=== PATIENT | female | born 1985 | race Caucasian/White ===

== ENCOUNTER → 2018-02-17 15:14 | Outpatient (CLI) | payer OTHER, SELFPAY ==
[2018-02-17 17:11] LABS: Absolute Lymphocyte Count 1.86 X10^3/ul (0.83-4.51); Basophil# 0.02 X10^3/uL; Basophil% 0.4 % (0-1); Eosinophil# 0.02 X10^3/uL; Eosinophils% 0.4 % (0-5); Hematocrit 30.8 % (37-47); Hemoglobin 10.7 g/dl (12.0-15.0); Lymphocyte # 1.86 X10^3/ul (4.0); Lymphocyte % 35.7 % (19-41); Mean Corp Hgb Conc 34.7 g/gl (32-36); Mean Corpuscular Hgb 31.9 pg (27.0-32.0); Mean Corpuscular Volume 91.9 fL (81-99); Mean Platelet Vol. 9.5 fl (6.2-12.0); Monocyte# 0.29 X10^3/uL; Monocyte% 5.6 % (0-10); Neutrophil # 3.01 X10^3/uL (2.7-7.7); Neutrophil % 57.7 % (47-70); Platelet Count 196 K/mm3 (150-450); RBC Distribution Width CV 12.9 % (11.6-14.6); RBC Distribution Width SD 42.1 fl (35.1-43.9); Red Blood Count 3.35 M/mm3 (4.2-5.4); White Blood Count 5.2 K/mm3 (4.4-11.0)
[2018-02-17 17:12] LABS: Color, Urine Yellow (Yellow); Differential Indicated SCAN CRITERIA MET; Glucose, Dipstick Normal (Normal); Ketone-Dipstick Negative (Negative); Leukocyte Esterase-Dipstick Negative /ul (Negative); Nitrite-Dipstick Negative (Negative); Occult Blood-Urine Negative /ul (Negative); POSITIVE COUNT NO; POSITIVE DIFFERENTIAL NO; POSITIVE MORPHOLOGY YES; Protein-Dipstick Negative (Negative); Urine Bilirubin Dipstick Negative (Negative); Urine Clarity Sl. Cloudy (Clear); Urine Urobilinogen 4 mg/dl (Normal); Urine pH 6.5 (5.0 - 8.0)
[2018-02-17 17:31] LABS: Thyroid Stim Hormone (TSH) 2.88 uIU/mL (0.358-3.74)
[2018-02-17 17:48] LABS: Differential Comment SCANNED
[2018-02-17 19:21] LABS: Chlamydia Trachomatis by PCR Negative (Negative); Neisserai gonorrhoeae by PCR Negative (Negative); Probe Check PASS; Sample Adequacy Control PASS; Specimen Processing Control PASS
[2018-02-18 03:11] LABS: Prenatal RPR NONREACTIVE (NONREACTIVE)
[2018-02-18 10:22] LABS: HIV - WCH Non-Reactive (Nonreactive); Rubella IgG 85.7 IU/mL
[2018-02-19 08:37] LABS: HEPATITIS B SURFACE AG Negative (Negative); Hep C Antibodies <0.1 s/co ratio (0.0-0.9)
[2018-02-23 11:53] LABS: HPV Reflexed? NOT INDICATED
== END ==
PROVIDERS: Visit Provider Obstetrics & Gynecology
DX: Z34.82 Encounter for supervision of other normal pregnancy, second trimester (principal); Z12.4 Encounter for screening for malignant neoplasm of cervix; Z11.3 Encounter for screening for infections with a predominantly sexual mode of transmission
CPT/HCPCS: 36415; 81002; 84443; 85025; 86703; 86762; 86803; 87340; 87491; 87591; 88175; G0145

== ENCOUNTER → 2018-07-12 20:31 | Outpatient (CLI) | payer OTHER, SELFPAY ==
[2018-07-12 22:46] LABS: Group B Strep DNA By PCR Negative (Negative); Internal Control PASS; Probe Check PASS; Specimen Processing Control PASS
== END ==
PROVIDERS: Family Provider Orthopaedic Surgery; PCP Orthopaedic Surgery; Visit Provider Obstetrics & Gynecology
DX: Z36.85 Encounter for antenatal screening for Streptococcus B (principal)
CPT/HCPCS: 87081; 87653

== ENCOUNTER 2018-08-09 21:35 | Inpatient (IN) | payer SELFPAY ==
[2018-08-09 21:50] VITALS: BMI 24.9
[2018-08-09] MEDS: Lactated Ringers 1,000 ML 50 ML IV (22:00)
[2018-08-09 22:19] LABS: Hematocrit 32.2 % (37-47); Hemoglobin 10.9 g/dl (12.0-15.0); Mean Corp Hgb Conc 33.9 g/gl (32-36); Mean Corpuscular Hgb 32.3 pg (27.0-32.0); Mean Corpuscular Volume 95.5 fL (81-99); Mean Platelet Vol. 9.4 fl (6.2-12.0); Platelet Count 181 K/mm3 (150-450); RBC Distribution Width SD 48.8 fl (35.1-43.9); Red Blood Count 3.37 M/mm3 (4.2-5.4); White Blood Count 8.4 K/mm3 (4.4-11.0)
[2018-08-09 22:20] LABS: Scan Indicated on CBC? Y/N NO
[2018-08-09] MEDS: Oxytocin 30 units/NS 500 ml 30 UNITS/500 ML IV.SOLN 334 UNITS IV (23:27)
--- NOTE | 2018-08-09 23:43 | PCM.DCVAG ---
Discharge Diet: No Restrictions Discharge Activity: May Shower, May Take a Tub Bath May resume sexual activity in: 4-6 weeks Additional Activity Instructions:: Nothing in the vagina for 4-6 weeks. You may return to work/school in 6 weeks. Additional Instructions: If you experience any of the following, contact your healthcare provider. Bleeding that soaks a pad every hour for 2 hours Fever 100.4 or higher Unrelieved abdominal pain Problems urinating (including inability to urinate or burning while urinating). Visual changes Severe headache Flu-like symptoms Pain or redness in one of both of your breasts Pain, warmth, tenderness or swelling in your legs, especially the calf area Frequent nausea and vomiting Symptoms of depression or anxiety If you experience any of the following, call 911 or go to the nearest Emergency Room. Chest pain Problems breathing Seizure activity Partial or complete paralysis of a body part, slurred speech, weakness or drooping of the face, or a sudden inability to walk or hold your balance Allergies/Adverse Reactions: Allergies No Known Allergies Allergy (Verified 08/09/18 21:51) Medications to take at Discharge Pnv 11-Iron Fum-Folic Acid-Om3 [Virt-Bo Dha Softgel] 1 each PO DAILY 08/09/18 Please Follow Up With: Jeromy Richardson MD - [phone] When: Call to make an appointment with your doctor in 6 weeks. Primary Care Physician: Sulaiman Field MD [Primary Care Provider] - Test Results: Test results from this visit will be discussed in further detail at your follow-up appointment, if applicable. Proposed Discharge Date: 08/11/18
--- NOTE | 2018-08-09 23:44 | DCINST_ITS ---
Discharge Diet: No Restrictions Discharge Activity: May Shower, May Take a Tub Bath May resume sexual activity in: 4-6 weeks Additional Activity Instructions:: Nothing in the vagina for 4-6 weeks. You may return to work/school in 6 weeks. Additional Instructions: If you experience any of the following, contact your healthcare provider. * Bleeding that soaks a pad every hour for 2 hours * Fever 100.4 or higher * Unrelieved abdominal pain * Problems urinating (including inability to urinate or burning while urinating) . * Visual changes * Severe headache * Flu-like symptoms * Pain or redness in one of both of your breasts * Pain, warmth, tenderness or swelling in your legs, especially the calf area * Frequent nausea and vomiting * Symptoms of depression or anxiety If you experience any of the following, call 911 or go to the nearest Emergency Room. * Chest pain * Problems breathing * Seizure activity * Partial or complete paralysis of a body part, slurred speech, weakness or drooping of the face, or a sudden inability to walk or hold your balance Allergies/Adverse Reactions: Allergies No Known Allergies Allergy (Verified 08/09/18 21:51) Medications to take at Discharge Pnv 11-Iron Fum-Folic Acid-Om3 [Virt-Bo Dha Softgel] 1 each PO DAILY 08/09/18 Please Follow Up With: Jeromy Richardson MD - [phone] When: Call to make an appointment with your doctor in 6 weeks. Primary Care Physician: Sulaiman Field MD [Primary Care Provider] - Test Results: Test results from this visit will be discussed in further detail at your follow- up appointment, if applicable. Proposed Discharge Date: 08/11/18
--- NOTE | 2018-08-09 23:44 | PCM.OB.VAG ---
Vaginal Delivery Maternal Presentation: Active Labor, Spontaneous Rupture of Membranes Amniotic Membrane Rupture Type: Spontaneous at home Amniotic Fluid Description: Clear Final MARCIAL: 08/06/18 Final MARCIAL Source: US <20 weeks Gestational age: 40 Weeks and 3 Days Date of Procedure: 08/09/18 Pre-Operative Diagnosis: 40 3/7 wk prior C/S -DELANO Post-Operative Diagnosis: 49 3/7 wk prior C/S successful Surgery/ Procedure Performed: Spontaneous Vaginal Delivery Type of Anesthesia: None Description of Procedure: after precipitous labor, of a ortega viable male over intact perineum to laceration. Head delivered NICOLE. Op and nares bulb suctioned at perineum after single forceful push resulted in expulsion of . No nuchal cord. Shoulders delivered easily. Infant to maternal abdomen. Cord clamped x two and cut. 30 cc of cord blood (approx) collected for various testing of hemophilia, and for routine cord blood typing. PP exam; 2nd deg midline posterior laceration repaired under 1% lidocaine local to hemostatic, intact with 3-0 vicryl. No other lacerations noted Placenta delivered by spont expulsion, expression. EBL 350 cc. Pt and tolerated delivery well. To recovery, stable condition. Presentation: Vertex, NICOLE Placental Delivery Description: Spontaneous, Expressed Placenta Disposition: [facility] Cord Vessel Description: 3 Vessels Cord Entanglement: None Estimated Blood Loss: 350 Infant A gender: Male (1 minute): 8 (5 minute): 9 Episiotomy Description: None Laceration: Midline, Perineal Extension/lac, Vaginal Extension/lac, 2nd degree Medications given after delivery: IV Pitocin Complications: None
[2018-08-09] MEDS: Oxytocin 30 units/NS 500 ml 30 UNITS/500 ML IV.SOLN 167 UNITS IV (23:57)
[2018-08-10] MEDS: Methylergonovine 0.2 MG/ML Ampul IM (01:05)
[2018-08-10] MEDS: Ibuprofen 600 MG Tablet PO ×3 (01:11→18:18)
[2018-08-10] MEDS: 0.9% Saline Lock 10 ML Syringe IV (01:11)
[2018-08-10] MEDS: Acetaminophen 500 MG Tablet 1000 MG PO ×2 (03:36→20:14)
[2018-08-10 06:00] VITALS: BP 126/86; PULSE 66; RESP 18; TEMP 36.4
[2018-08-10 06:38] LABS: Hematocrit 33.5 % (37-47); Hemoglobin 11.7 g/dl (12.0-15.0); Mean Corp Hgb Conc 34.9 g/gl (32-36); Mean Corpuscular Hgb 33.6 pg (27.0-32.0); Mean Corpuscular Volume 96.3 fL (81-99); Mean Platelet Vol. 9.6 fl (6.2-12.0); Platelet Count 181 K/mm3 (150-450); RBC Distribution Width CV 13.7 % (11.6-14.6); RBC Distribution Width SD 46.1 fl (35.1-43.9); Red Blood Count 3.48 M/mm3 (4.2-5.4); White Blood Count 13.6 K/mm3 (4.4-11.0)
[2018-08-10 06:40] LABS: Scan Indicated on CBC? Y/N NO
[2018-08-10 07:45] VITALS: BP 118/77; PULSE 67; RESP 16; TEMP 36.3; O2SAT 97
--- NOTE | 2018-08-10 12:35 | PN.OBGYN_ITS ---
Subjective: PPD#1 Doing well. Minimal pain. Breast feeding. Plans delayed circumcision if hemophilia testing OK. 9 yo son dx at 9 yo with hemophilia. Multiple labs drawn at delivery from cord blood. (all pending) Objective: Sitting up in bed. Holding baby, baby alert and quiet. - Physical Exam General: Alert, Oriented x3, Cooperative, No apparent distress HEENT: Atraumatic, PERRLA, EOMI, Normocephalic Neck: Supple Neurological: Cranial nerves II-XII grossly intact Psych/Mental Status: Normal Affect Vital Signs Temp Pulse Resp BP Pulse Ox 97.3 F L 67 16 118/77 97 08/10/18 07:45 08/10/18 07:45 08/10/18 07:45 08/10/18 07:45 08/10/18 07:45 Oxygen Delivery Method Room Air Weight: 59.8 kg Body Mass Index (BMI) 24.9 Intake and Output for Last 24 Hours 08/08/18 08/09/18 08/10/18 23:59 23:59 23:59 Intake Total 1075 / 1075 Output Total 850 / 850 Balance 225 / 225 Laboratory Tests Past 24 Hrs 08/09/18 08/09/18 08/10/18 22:05 22:05 06:15 WBC 8.4 13.6 H RBC 3.37 L 3.48 L Hgb 10.9 L 11.7 L Hct 32.2 L 33.5 L MCV 95.5 96.3 MCH 32.3 H 33.6 H MCHC 33.9 34.9 RDW 14.0 13.7 RDW Differential 48.8 H 46.1 H Plt Count 181 181 MPV 9.4 9.6 Blood Type O POSITIVE Antibody Screen NEGATIVE Medical Necessity - Tobacco Use Smoking Status: Never smoker Assessment/Plan PPD#1 40 3/7 wk Stable pp. Continue routine care. Plans to go home tomorrow. No circumcision , pending hemophilia testing.
[2018-08-10 12:40] VITALS: BP 114/82; PULSE 63; RESP 16; TEMP 35.9; O2SAT 98
[2018-08-10] MEDS: Prenatal Vits Tablet 1 TABLET PO (13:10)
--- NOTE | 2018-08-10 13:55 | NURSING ---
This nursing department chairperson reviewed the charting completed by Jesus Manuel Mora and it is correct.
[2018-08-10 17:03] VITALS: BP 122/82; PULSE 68; RESP 16; TEMP 36.4; O2SAT 100
[2018-08-10 20:15] VITALS: BP 123/84; PULSE 78; RESP 16; TEMP 36.7
[2018-08-11 01:51] VITALS: BP 120/86; PULSE 60; RESP 18; TEMP 36.4
[2018-08-11] MEDS: Ibuprofen 600 MG Tablet PO (05:10)
[2018-08-11 08:00] VITALS: BP 109/74; PULSE 78; RESP 16; TEMP 36.2; O2SAT 97
--- NOTE | 2018-08-11 08:08 | PCM.PN.OB ---
Subjective: PPD#2 A and O, NAD Baby under bili lights, hoping to be able to go home this evening. Peds to come in to discuss issues. Bilirubin level planned for 1330 per pt. No concerns voiced otherwise. - Physical Exam General: Alert, Oriented x3, Cooperative, No apparent distress HEENT: Atraumatic Neck: Supple Abdomen: Soft - Fundus firm NT at approx 2 cm inferior to umbilicus Neurological: Cranial nerves II-XII grossly intact Psych/Mental Status: Normal Affect Vital Signs Temp Pulse Resp BP Pulse Ox 97.6 F L 60 18 120/86 H 100 08/11/18 01:51 08/11/18 01:51 08/11/18 01:51 08/11/18 01:51 08/10/18 17:03 Oxygen Delivery Method Room Air Weight: 59.8 kg Body Mass Index (BMI) 24.9 Intake and Output for Last 24 Hours 08/09/18 08/10/18 08/11/18 23:59 23:59 23:59 Intake Total 1075 / 1075 Output Total 850 / 850 Balance 225 / 225 Medical Necessity - Tobacco Use Smoking Status: Never smoker Assessment/Plan PPD#2 40 3/7 wk Stable pp. Plans to go home today if baby is released. To hotel if baby needs to stay. F/U in 6 wk for pp check in ofc, prn sooner after dischg No circumcision, pending hemophilia testing.
[2018-08-11 14:20] VITALS: BP 121/76; PULSE 82; RESP 18; TEMP 36.6; O2SAT 98
[2018-08-11 19:46] VITALS: BP 127/76; PULSE 82; RESP 16; TEMP 36.2; O2SAT 98
== END 2018-08-11 21:30 | disposition home or self-care (01) | DRG 775 ==
PROVIDERS: Admitting Provider Obstetrics & Gynecology; Family Provider Orthopaedic Surgery; PCP Orthopaedic Surgery; Visit Provider Obstetrics & Gynecology
DX: O48.0 Post-term pregnancy (principal); Z3A.40 40 weeks gestation of pregnancy; Z37.0 Single live birth; O34.219 Maternal care for unspecified type scar from previous cesarean delivery; O70.1 Second degree perineal laceration during delivery; O62.3 Precipitate labor; Z83.2 Family history of diseases of the blood and blood-forming organs and certain disorders involving the immune mechanism
CPT/HCPCS: 59025; 59050; 85027; 86850; 86900; 99218; J7120; A4216; G0378

== ENCOUNTER → 2021-09-23 | Outpatient (CLI) | payer OTHER, SELFPAY ==
[2021-09-26 22:06] LABS: Chlamydia By Nucleic Acid AMP Negative (Negative)
[2021-09-27 07:41] LABS: Gonococcus By Nucleic Acid AMP Negative (Negative)
[2021-09-27 22:18] LABS: HPV Reflexed? NOT INDICATED
== END | disposition home or self-care (01) ==
PROVIDERS: PCP Orthopaedic Surgery; Visit Provider Obstetrics & Gynecology
DX: Z32.01 Encounter for pregnancy test, result positive (principal); Z12.4 Encounter for screening for malignant neoplasm of cervix; Z11.3 Encounter for screening for infections with a predominantly sexual mode of transmission
CPT/HCPCS: 87491; 87591; 88175; G0145

== ENCOUNTER 2022-03-03 13:30 | Outpatient (CLI) | payer OTHER, SELFPAY | END 2022-03-03 23:59 | disposition home or self-care (01) | LOC: LABSPEC 03-04 08:53 | PROVIDERS: PCP Orthopaedic Surgery; Visit Provider Obstetrics & Gynecology | DX: Z36.85 Encounter for antenatal screening for Streptococcus B (principal) | CPT/HCPCS: 87081 ==

== ENCOUNTER 2022-03-28 05:00 | Inpatient (IN) | payer SELFPAY, OTHER ==
[2022-03-28] VITALS (25 sets, daily range): BP systolic 101–174; BP diastolic 61–92; PULSE 62–108; RESP 18; TEMP 36.6–37.1; O2SAT 98–100; BMI 25.7
[2022-03-28 04:40] LABS: ROM Internal Control Test YES-OK TO RESULT pt. (Internal QC)
[2022-03-28 04:42] LABS: ROM Patient Test POSITIVE (Negative)
[2022-03-28 06:18] LABS: Basophil# 0.01 X10^3/uL; Basophil% 0.2 % (0-1); Eosinophil# 0.02 X10^3/uL; Eosinophils% 0.3 % (0-5); Hematocrit 30.1 % (37-47); Hemoglobin 10.3 g/dL (12.0-15.0); Lymphocyte % 15.7 % (19-41); Mean Corp Hgb Conc 34.2 g/dL (32-36); Mean Corpuscular Hgb 33.6 pg (27.0-32.0); Monocyte# 0.32 X10^3/uL; NRBC Flagged by Analyzer 0 % (0-5); Neutrophil # 4.99 X10^3/uL (2.7-7.7); Neutrophil % 78.3 % (47-70); Platelet Count 185 K/mm3 (150-450); RBC Distribution Width CV 14.1 % (11.6-14.6); RBC Distribution Width SD 50.4 fl (35.1-43.9); Red Blood Count 3.07 M/mm3 (4.2-5.4); White Blood Count 6.4 K/mm3 (4.4-11.0)
--- NOTE | 2022-03-28 07:34 | PCM.HP.BLA ---
History and Physical Date of Admission: 03/28/22 Chief complaint leakage of fluid History present illness: 36-year-old G4, P3 at 39 weeks and 5 days with MARCIAL 03/30/2022 by 20-week ultrasound arrives for leakage of clear fluid. Denies headache, visual symptoms, chest pain, shortness of breath, nausea vomiting, right upper quadrant pain. Patient states good movement. 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 Medications: vitamin Past surgical history: section Allergies: No known drug allergies Social history: Denies smoking, place, drug use Family history: Denies history DVT or PE Review of systems: Besides above pertinent positives a full review of systems was performed and found to be negative Physical exam: Vitals: Blood pressure 120/86 pulse 97 SPO2 100% on room air General: Normal-appearing no acute distress HEENT: Normocephalic/atraumatic no cervical lymphadenopathy Cardiac/respiratory: No use of accessory muscles, nonlabored breathing Abdomen: Soft, nontender, gravid Extremities: No peripheral edema normal peripheral pulses Psych: Normal affect normal demeanor nonpressured speech Labs: White blood cell count 6.4 hemoglobin 12.3 hematocrit 30.1% platelets 185. ROM positive. 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
[2022-03-28] MEDS: Lactated Ringers 1,000 ML 50 ML IV (12:58)
[2022-03-28] MEDS: Oxytocin 30 units/NS 500 ml 30 UNITS/500 ML IV.SOLN IV (13:00)
[2022-03-28] MEDS: Oxytocin 30 units/NS 500 ml 30 UNITS/500 ML IV.SOLN 334 UNITS IV (14:40)
--- NOTE | 2022-03-28 14:49 | EX.PCM.OBRPT ---
Vaginal Delivery Findings Description of Procedure: Normal spontaneous vaginal delivery of a viable female infant, vertex NADEGE. Head and shoulders delivered with ease. Cord cut and clamped. Baby handed off to patient. Placenta delivered via cord traction and fundal massage. Second-degree midline perineal laceration noted and repaired in typical fashion. EBL 250 cc Apgars 8/9
[2022-03-28] MEDS: Ibuprofen 600 MG Tablet PO (15:36)
[2022-03-28] MEDS: 0.9% Saline Lock 10 ML Syringe IV (17:23)
[2022-03-29 00:01] VITALS: BP 110/70; PULSE 68; RESP 18; TEMP 36.6
[2022-03-29] MEDS: Ibuprofen 600 MG Tablet PO (03:57)
[2022-03-29 03:59] VITALS: BP 105/74; PULSE 71; RESP 18; TEMP 36.8
--- NOTE | 2022-03-29 08:57 | PCM.DC ---
Discharge Instructions Diet Discharge Diet: No restrictions Activity Discharge Activity: Return to Normal Activity, May Drive and May Shower May resume sexual activity in: 4-6 weeks Weight Bearing Status: Weight bearing as tolerated Dressing / Incision Call your doctor if your incision/area has: Continuous Slow Oozing and Foul Smelling Discharge Call your doctor if you observe: Fever of 101 or Higher, Shortness of breath and Chest pain Follow Up Care Please Follow Up With: Efrain Field MD When: 2-week telehealth visit, 4 to 6 weeks Test Results: Test results from this visit will be discussed in further detail at your follow-up appointment, if applicable. Discharge Plan Admission Admit Date/Time: 03/28/22 05:00 Attending Provider: Efrain Field Primary Care Provider: Sulaiman Field Discharge Orders/Prescriptions Prescriptions: No Action Virt-Bo DHA 1 EACH capsule 1 ea PO DAILY RF: 0 Disposition Discharge Orders: Discharge Patient (Routine); Ordered 03/29/22 Ordered By: Dr. Efrain Field
--- NOTE | 2022-03-29 08:58 | PN.OBGYN_ITS ---
Subjective Subjective No overnight complaints Objective Data Objective Data Vital Signs: Vital Signs Temp Pulse Resp BP Pulse Ox 98.2 F 71 18 105/74 100 03/29/22 03:59 03/29/22 03:59 03/29/22 03:59 03/29/22 03:59 03/28/22 13:15 Weight: 136 lb 3.2 oz Body Mass Index (BMI) 25.7 Intake & Output: Intake and Output for Last 24 Hours 03/27/22 03/28/22 03/29/22 23:59 23:59 23:59 Intake Total 588.33 / 588.33 Output Total 800 / 800 Balance -211.67 / -211.67 Lab / Micro Data Result Diagrams: 03/28/22 06:05 Micro: Microbiology 03/28/22 07:00 Nasal Secretion SARS-CoV-2 Antigen (Rapid) - Final Physical Exam Const alert, oriented x3, no apparent distress, average body habitus, healthy appearing and well nourished HEENT normocephalic and moist oral mucous membranes Head and Scalp: atraumatic Face and Sinus: normal facial exam Neck full ROM Resp normal respiratory effort, no retractions and no use of accessory muscles Extremity normal to inspection, full ROM and no clubbing, cyanosis or edema Psych mental status grossly normal, affect normal, speech normal and activity/motor behavior normal Assessment & Plan (1) Vaginal delivery: PLAN: day 1. Breast-feeding. Okay to discharge home if okay with manufacturers service representative
[2022-03-29 10:00] VITALS: BP 131/84; PULSE 90; RESP 18; TEMP 36.4
[2022-03-29 12:00] VITALS: BP 135/79; PULSE 70; RESP 18; TEMP 36.5
[2022-03-29 17:00] VITALS: BP 126/77; PULSE 90; RESP 18; TEMP 36.8
== END 2022-03-29 17:05 | disposition home or self-care (01) | DRG 807 ==
LOC: WPOUT 05:06 → WP 05:06
PROVIDERS: Admitting Provider Obstetrics & Gynecology; PCP Orthopaedic Surgery; Visit Provider Obstetrics & Gynecology
DX: O34.219 Maternal care for unspecified type scar from previous cesarean delivery (principal); Z37.0 Single live birth; O70.1 Second degree perineal laceration during delivery; Z14.8 Genetic carrier of other disease; Z3A.39 39 weeks gestation of pregnancy
CPT/HCPCS: 59025; 59050; 84112; 85025; 86850; 86900; 86901; 87426; 99218; J7120; A4216; G0378